=== PATIENT | male | born 1975 | race Hispanic/Latino ===

== ENCOUNTER 2021-08-21 10:31 | Emergency (ER) | payer SELFPAY ==
--- OUTSIDE RECORDS SUMMARY | 2021-08-21 10:33 | XMS REPORT | Continuity of Care Document ---
:1975 Author Organization [facility] Address [address] Suh [address] [place] [id number] Care Team Providers Name Role Phone SARAH Primary Care Physician Unavailable KATIE Attending Clinician Unavailable NELLA Attending Clinician Unavailable SARAH Attending Clinician Unavailable PRACHI Attending Clinician Unavailable FRANKIE Attending Clinician Unavailable MARQUIS Attending Clinician Unavailable Payers Payer Name Policy Type Policy Number Effective Date Expiration Date S ource Problems This patient has no known problems. Allergies, Adverse Reactions, Alerts This patient has no known allergies or adverse reactions. Medications This patient has no known medications. Procedures This patient has no known procedures. Encounters Start End Encounter Admission Attending Care Care Encounter Source Date/Time Date/Time Type Type Clinicians Facility Department ID 2021-08-27 2021-08-27 [facility] [id number] [facility] 00:00:00 00:00:00 YSABEL 2021-08-14 2021-08-14 [facility] [id number] [facility] 00:00:00 00:00:00 YSABEL 2021-03-21 2021-03-21 Outpatient [facility] [id number] [facility] 00:00:00 00:00:00 2021-03-16 2021-03-16 [facility] [id number] [facility] 09:09:46 09:16:44 SHREYA 2021-02-13 2021-02-13 [facility] [id number] [facility] 00:00:00 00:00:00 NIYAH 2020-11-03 2020-11-03 [facility] [id number] [facility] 00:00:00 00:00:00 YSABEL 2020-07-11 2020-07-11 [facility] [id number] [facility] 14:36:21 14:41:55 KRYSTAL 2020-07-072020-07-07 Outpatient FRANKIE, [facility] [id number] [facility] 14:57:28 17:21:40 CHAPIS 2020-06-21 2020-06-21 Outpatient PRACHI, [facility] [id number] [facility] 00:00:00 00:00:00 KRYSTAL 2020-05-24 2020-05-24 Outpatient MARQUIS, [facility] [id number] [facility] 10:14:38 10:14:53 RAFITA 2018-08-25 2018-08-25 Outpatient [facility] [id number] [facility] 00:00:00 00:00:00 2018-07-31 2018-07-31 Outpatient [facility] [id number] [facility] 00:00:00 00:00:00 2018-07-22 2018-07-22 Outpatient [facility] [id number] [facility] 00:00:00 00:00:00 2018-03-25 2018-03-25 Outpatient [facility] [id number] [facility] 17:55:06 17:55:06 2017-09-30 2017-09-30 Outpatient [facility] [id number] [facility] 00:00:00 00:00:00 2017-09-16 2017-09-16 Outpatient [facility] [id number] [facility] 14:07:49 14:07:49 2017-09-02 2017-09-02 Outpatient [facility] [id number] [facility] 15:12:45 15:12:45 Results This patient has no known results.
[2021-08-21] MEDS ORDERED: HYDROMORPHONE HCL 1 MG/ML INJ ONE ×2 (10:53→12:19)
--- NOTE | 2021-08-21 11:14 | ER ---
Nurse's Notes [facility] Name: Heath Ash Age: 46 yrs Sex: Male : 1975 Arrival Date: 08/21/2021 Time: 10:36 Bed 3 Private MD: Diagnosis: Displaced intertrochanteric fracture of right femur;Displaced comminuted fracture of shaft of right femur Presentation: 08/21 10:36 Chief complaint: EMS states: Fell just prior to arrival off of scaffolding that was 8 ss ft high. Pt c/o R hip/ thigh pain. Has no other complaints. Care prior to arrival: Cervical collar in place. Placed on backboard. DANTE SLING applied by EMS IV initiated. 18 GA, in the left antecubital area. Mechanism of Injury: Fall Scaffold 8 ft. Trauma event details: Injury occurred in the [facility], Injury occurred: August 21, 2021. 10:36 Acuity: DONA 2 ss 10:36 Method Of Arrival: EMS: [facility] ss 10:36 Coronavirus screen: Client denies travel out of the [place] in the last 14 days. Ebola ss Screen: Patient denies exposure to infectious person. Patient denies travel to an Ebola-affected area in the 21 days before illness onset. Initial Sepsis Screen: Does the patient meet any 2 criteria? No. Patient's initial sepsis screen is negative. Does the patient have a suspected source of infection? No. Patient's initial sepsis screen is negative. Risk Assessment: Do you want to hurt yourself or someone else? Patient reports no desire to harm self or others. Note FENTANYL 100 mcg IV. Onset of symptoms was August 21, 2021. Trauma Activation: Alert Physician: ED Physician; Name: ; Notified At: ; Arrived At: Physician: General Surgeon; Name: ; Notified At: ; Arrived At: Physician: Radiology; Name: ; Notified At: ; Arrived At: Physician: Respiratory; Name: ; Notified At: ; Arrived At: Physician: Lab; Name: ; Notified At: ; Arrived At: Historical: - Allergies: 10:46 No Known Allergies; ss - PMHx: 10:46 Diabetes mellitus; ss - Immunization history: Last tetanus immunization: unknown. - Social history:: Smoking status: Patient denies any tobacco usage or history of. - Family history:: not pertinent. - Hospitalizations: : No recent hospitalization is reported. Screenin:36 Abuse screen: Denies threats or abuse. Denies injuries from another. Tuberculosis ss screening: Never had TB. 11:23 Nutritional screening: No deficits noted. Fall Risk None identified. bp Primary Survey: 10:36 NO uncontrolled hemorrhage observed. A: The client is awake and alert. The airway is ss patent. Breathing/Chest: Spontaneous respiratory effort, equal unlabored respirations, breath sounds clear bilaterally, regular pattern, symmetrical chest rise and fall. Respiratory effort: spontaneous, Breath sounds: clear, Chest inspection: symmetrical rise and fall of the chest. Circulation: No external hemorrhage present. Regular and strong central pulse, skin warm/dry/normal color. Disability Pupils are equal, round, reactive to light and accommodation. Client is alert. Exposure/Environment: All clothing and personal items were removed. Forensic evidence collection is not deemed to be indicated at this time. Items placed in patient belonging bag. There is no evidence of uncontrolled external bleeding. Obvious injury(ies) are noted at this time: deformity noted to R femur area. 13:42 Reassessment Breathing: Spontaneous respiratory effort, equal unlabored respirations, bp breath sounds clear bilaterally, regular pattern with symmetrical chest rise and fall. Respiratory effort Spontaneous Unlabored. Assessment: 10:40 General: Appears distressed, uncomfortable, Behavior is cooperative, appropriate for bp age, anxious. Pain: Complains of pain in right leg. Neuro: Level of Consciousness is awake, alert, obeys commands, Oriented to Appropriate for age. EENT: No deficits noted. Cardiovascular: No deficits noted. Respiratory: No deficits noted. GI: No signs and/or symptoms were reported involving the gastrointestinal system. : No signs and/or symptoms were reported regarding the genitourinary system. Derm: No deficits noted. Musculoskeletal: Bony deformity noted of right upper thigh. Injury Description: Deformity sustained to right upper thigh. 11:23 Reassessment: PER , R FEMORAL NECK FX NOTED. PT TO BE TRANSFERRED. bp 12:37 Reassessment: REPORT TO [facility] ER. TRANSPORT PENDING. bp 13:40 Reassessment: PJT MAXINE WITH EMS. bp Vital Signs: 10:36 BP 146 / 98; Pulse 82; Resp 20; Temp 98.2; Pulse Ox 96% on R/A; Pain 10/10; ss 11:23 BP 156 / 93; Pulse 84; Resp 16; Pulse Ox 96% ; bp 12:37 BP 102 / 48; Pulse 50; Resp 12; Pulse Ox 97% ; bp 13:40 BP 152 / 88; Pulse 96; Resp 16; Pulse Ox 95% ; bp Krysta Coma Score: 10:36 Eye Response: spontaneous(4). Verbal Response: oriented(5). Motor Response: obeys ss commands(6). Total: 15. Trauma Score (Adult): 10:36 Eye Response: spontaneous(1); Verbal Response: oriented(1); Motor Response: obeys ss commands(2); Systolic BP: > 89 mm Hg(4); Respiratory Rate: 10 to 29 per min(4); Krysta Score: 15; Trauma Score: 12 ED Course: 10:36 Patient arrived in ED. rn 10:36 Davy Miller MD is Attending Physician. rn 10:36 Patient has correct armband on for positive identification. ss 10:36 Patient maintains SpO2 saturation greater than 95% on room air. ss 10:40 Maintain EMS IV. Dressing intact. Good blood return noted. Site clean \T\ dry. Gauge \T\ bp site: 18 G LEFT AC. 10:43 Triage completed. ss 10:44 Bayron Tejeda, RN is Primary Nurse. bp 10:46 Arm band placed on right wrist. ss 11:07 XRAY Chest (1 view) In Process Unspecified. EDMS 11:07 XRAY Pelvis In Process Unspecified. EDMS 11:07 XRAY Femur RIGHT In Process Unspecified. EDMS 11:37 initiated transfer to [facility]. bd 12:02 CT C Spine In Process Unspecified. EDMS 12:07 Chest Abdomen Pelvis W Cont In Process Unspecified. EDMS 13:41 No provider procedures requiring assistance completed. Patient transferred, IV remains bp in place. 14:16 Thermoregulation: warm blanket given to patient. bp Administered Medications: 10:51 Drug: Dilaudid (HYDROmorphone) 1 mg Route: IVP; Site: left antecubital; bp 11:18 Follow up: Response: Pain is decreased bp 12:15 Drug: Dilaudid (HYDROmorphone) 1 mg Route: IVP; Site: left antecubital; bp 12:38 Follow up: Response: Pain is decreased bp Medication: 11:23 VIS not applicable for this client. bp Intake: 13:42 PO: 0ml; IV: 250ml; Total: 250ml. bp Outcome: 11:14 ER care complete, transfer ordered by . rn 13:41 Transferred by ground EMS to [facility], Transfer form completed. bp 13:41 Condition: stable 13:41 Instructed on the need for transfer. 14:16 Patient's length of stay was not longer than 2 hours. bp 14:17 Patient left the ED. bp Signatures: Dispatcher [employer] EDMS Arielle Pryor Roman, MD MD rn Smirch, Shelby, RN RN ss Peltier, Brian, RN RN bp
--- NOTE | 2021-08-21 11:14 | EDPHYS ---
Physician Documentation [facility] Name: Heath Ash Age: 46 yrs Sex: Male : 1975 Arrival Date: 08/21/2021 Time: 10:36 Bed 3 Private MD: ED Physician Davy Miller HPI: 08/21 12:24 This 46 yrs old Male presents to ER via EMS with complaints of Fall Injury, e learning coordinator Complaint. 12:24 Details of fall: The patient fell from a height, off scaffolding. Onset: The rn symptoms/episode began/occurred just prior to arrival. Associated injuries: The patient sustained right hip/thigh. Severity of symptoms: At their worst the symptoms were moderate, in the emergency department the symptoms are unchanged. The patient has not experienced similar symptoms in the past. The patient has not recently seen a physician. 12:24 Remembers all events, reports pain only to right hip.. rn Historical: - Allergies: 10:46 No Known Allergies; ss - PMHx: 10:46 Diabetes mellitus; ss - Immunization history: Last tetanus immunization: unknown. - Social history:: Smoking status: Patient denies any tobacco usage or history of. - Family history:: not pertinent. - Hospitalizations: : No recent hospitalization is reported. ROS: 12:24 Constitutional: Negative for fever, chills, and weight loss, Neck: Negative for injury, rn pain, and swelling, Cardiovascular: Negative for chest pain, palpitations, and edema, Respiratory: Negative for shortness of breath, cough, wheezing, and pleuritic chest pain, Abdomen/GI: Negative for abdominal pain, nausea, vomiting, diarrhea, and constipation, Back: Negative for injury and pain, MS/Extremity: + pain to right hip/thigh Skin: Negative for injury, rash, and discoloration, Neuro: Negative for headache, weakness, numbness, tingling, and seizure. Exam: 12:24 Constitutional: This is a well developed, well nourished patient who is awake, alert, rn appears in pain, holding right leg Head/Face: Normocephalic, atraumatic. Eyes: Periorbital areas with no swelling, redness, or edema. Neck: In ccollar, no midline tenderness Chest/axilla: Normal chest wall appearance and motion. Nontender with no deformity. No lesions are appreciated. Cardiovascular: Regular rate and rhythm with a normal S1 and S2. No gallops, murmurs, or rubs. Normal PMI, no JVD. No pulse deficits. Respiratory: Lungs have equal breath sounds bilaterally, clear to auscultation and percussion. No rales, rhonchi or wheezes noted. No increased work of breathing, no retractions or nasal flaring. Abdomen/GI: Soft, non-tender, no ecchymosis Back: No spinal tenderness MS/ Extremity: Pulses equal, no cyanosis. + tenderness with swelling to right proximal leg, no open wounds Neuro: Awake and alert, GCS 15 Vital Signs: 10:36 BP 146 / 98; Pulse 82; Resp 20; Temp 98.2; Pulse Ox 96% on R/A; Pain 10/10; ss 11:23 BP 156 / 93; Pulse 84; Resp 16; Pulse Ox 96% ; bp 12:37 BP 102 / 48; Pulse 50; Resp 12; Pulse Ox 97% ; bp 13:40 BP 152 / 88; Pulse 96; Resp 16; Pulse Ox 95% ; bp Krysta Coma Score: 10:36 Eye Response: spontaneous(4). Verbal Response: oriented(5). Motor Response: obeys ss commands(6). Total: 15. Trauma Score (Adult): 10:36 Eye Response: spontaneous(1); Verbal Response: oriented(1); Motor Response: obeys ss commands(2); Systolic BP: > 89 mm Hg(4); Respiratory Rate: 10 to 29 per min(4); [place] Score: 15; Trauma Score: 12 MDM: 10:36 Patient medically screened. rn 11:56 ED course: Initiate transfer to [facility], has now been 40 min since initiation and no rn call back, will have to try another facility. . 12:04 ED course: Accepted to [facility] by ortho without consultation. . rn 12:23 ED course: Notified patient of left parotid mass finding on CT, states present for 2 rn years, not growing, told him in romansh that may be malignant or cancerous, understands and will make appt to further eval.. 12:24 Differential diagnosis: contusion, fracture, sprain, strain. Data reviewed: vital rn signs, nurses notes, radiologic studies, CT scan, plain films, and as a result, I will admit patient. Counseling: I had a detailed discussion with the patient and/or guardian regarding: the historical points, exam findings, and any diagnostic results supporting the discharge/admit diagnosis, lab results, radiology results, the need to transfer to another facility, for higher level of care. Response to treatment: the patient's symptoms have markedly improved after treatment. 08/21 10:37 Order name: Basic Metabolic Panel; Complete Time: 12:02 rn 08/21 10:37 Order name: CBC with Diff; Complete Time: 12: rn 08/21 10:37 Order name: Protime (+inr); Complete Time: 12:02 rn 08/21 10:37 Order name: Ptt, Activated; Complete Time: 12: rn 08/21 10:37 Order name: XRAY Chest (1 view); Complete Time: 11:19 rn 08/21 10:37 Order name: XRAY Pelvis; Complete Time: 11:19 rn 08/21 10:38 Order name: XRAY Femur RIGHT; Complete Time: 11:19 rn 08/21 11:50 Order name: CT C Spine; Complete Time: 12:20 rn 08/21 11:57 Order name: Chest Abdomen Pelvis W Cont; Complete Time: 12:20 EDNH 08/21 10:37 Order name: IV Start; Complete Time: 10:51 rn 08/21 10:56 Order name: NPO; Complete Time: 11:18 rn Administered Medications: 10:51 Drug: Dilaudid (HYDROmorphone) 1 mg Route: IVP; Site: left antecubital; bp 11:18 Follow up: Response: Pain is decreased bp 12:15 Drug: Dilaudid (HYDROmorphone) 1 mg Route: IVP; Site: left antecubital; bp 12:38 Follow up: Response: Pain is decreased bp Disposition Summary: 08/21/21 11:14 Transfer Ordered Transfer Location: [facility] rn Reason: Higher level of care rn Condition: Stable rn Problem: new rn Symptoms: have improved rn Accepting Physician: (08/21/21 14:17) bp Diagnosis - Displaced intertrochanteric fracture of right femur rn - Displaced comminuted fracture of shaft of right femur rn Forms: - Medication Reconciliation Form rn - SBAR form rn Signatures: Dispatcher [employer] EDMS Davy Miller MD MD rn Smirch, Shelby, RN RN ss Bayron Tejeda RN RN bp Corrections: (The following items were deleted from the chart) 11:14 10:38 Hip Right 2 View+RAD.RAD.BRZ ordered. EDMS EDMS 11:57 11:21 Chest Abdomen W/ Con+CT.RAD.BRZ ordered. EDMS EDMS 14:17 11:14 Dr. crockett bp
[2021-08-21 11:15] LABS: Absolute Lymphocytes (CBC) 2.8 K/uL (0.7-4.9); Hematocrit 40.7 % (39.6-49.0); MPV 10.8 fL (7.6-11.3); RBC Red Blood Cell Count 4.68 M/uL (4.33-5.43)
--- NOTE | 2021-08-21 11:16 | RAD REPORT ---
EXAM DESCRIPTION: RAD - Chest Single View - 08/21/2021 11:05 am CLINICAL HISTORY: fall from scaffold Chest pain. COMPARISON: No comparisons FINDINGS: Portable technique limits examination quality. Right hemidiaphragm appears elevated, without clear etiology seen. The lungs appear grossly clear. Th e heart is normal in size. No displaced fractures.
--- NOTE | 2021-08-21 11:17 | RAD REPORT ---
EXAM DESCRIPTION: RAD - Pelvis - 08/21/2021 11:05 am CLINICAL HISTORY: fall from scaffold COMPARISON: No comparisons FINDINGS: Intratrochanteric fracture is seen of the proximal right femur with varus angulation.
--- NOTE | 2021-08-21 11:17 | RAD REPORT ---
EXAM DESCRIPTION: RAD - Femur Right - 08/21/2021 11:05 am CLINICAL HISTORY: PAIN COMPARISON: No comparisons FINDINGS: Intratrochanteric fracture is seen of the proximal right femur with varus angulation.
[2021-08-21 11:20] LABS: Protime INR 0.92
--- NOTE | 2021-08-21 12:10 | RAD REPORT ---
EXAM DESCRIPTION: CT - C Spine Wo Con - 08/21/2021 12:00 pm CLINICAL HISTORY: Neck trauma, dangerous injury mechanism COMPARISON: No comparisons FINDINGS: The cervical vertebral body heights and disc spaces are maintained. No evidence of acute cervical spine fracture or subluxation. Prevertebral soft tissues are normal in thickness. There is a large mass in the left parotid gland measuring 3.4 x 2.6 cm. This is likely neoplastic. IMPRESSION: Negative for acute cervical spine abnormality. 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 Recommend appropria te clinical follow-up. All CT scans are performed using dose optimization technique as appropriate and may include automated exposure control or mA/KV adjustment according to patient size.
--- NOTE | 2021-08-21 12:17 | RAD REPORT ---
EXAM DESCRIPTION: CT - Chest Abdomen Pelvis W Cont - 08/21/2021 12:05 pm CLINICAL HISTORY: Chest and abdomen pain. blunt trauma, abnormal cxr COMPARISON: No comparisons TECHNIQUE: Approximately 100 mL nonionic IV contrast was administered to the patient. All CT scans are performed using dose optimization technique as appropriate and may include automated exposure control or mA/KV adjustment according to patient size. FINDINGS: Elevation right hemidiaphragm is seen without clear reactive etiology. Mild atelectasis is seen in the right lung base.No rib fracture is identified.No pleural or pericardial effusion.No intr athoracic adenopathy. The liver, spleen, pancreas, adrenal glands and kidneys are within normal limits. No bowel obstruction, free air, free fluid or abscess. Normal appendix. No pathologic lymphadenopath y in the abdomen or pelvis. Fracture proximal right femur. IMPRESSION: Proximal right femur fracture.No additional trauma related abnormality is observed.
[2021-08-21 14:22] VITALS: TEMP 98.2
[2021-08-21 14:27] VITALS: BP 152/88; O2SAT 95
== END 2021-08-21 14:17 | disposition short-term general hospital (02) ==
LOC: ER 10:31
DX: S72.141A Displaced intertrochanteric fracture of right femur, initial encounter for closed fracture (principal); S72.351A Displaced comminuted fracture of shaft of right femur, initial encounter for closed fracture; E11.9 Type 2 diabetes mellitus without complications
CPT/HCPCS: 36415; 71045; 71260; 72125; 72170; 74177; 80048; 85025; 85610; 85730; 96374; 99285; J1170; Q9967